=== PATIENT | female | born 1955 | race Two or more races ===

== ENCOUNTER → 2018-04-12 | Outpatient (CLI) | payer OTHER | END | disposition home or self-care (01) | LOC: SONOGRAMA 15:39 | DX: R10.2 Pelvic and perineal pain (principal) ==

== ENCOUNTER 2018-04-20 11:28 | Outpatient (CLI) | payer OTHER | END 2018-04-20 17:00 | disposition home or self-care (01) | LOC: TOM 11:28 | DX: J98.4 Other disorders of lung (principal) ==

== ENCOUNTER → 2019-03-27 | Outpatient (CLI) | payer OTHER | END | disposition home or self-care (01) | LOC: SONOGRAMA 10:39 | DX: N83.209 Unspecified ovarian cyst, unspecified side (principal); R10.2 Pelvic and perineal pain ==

== ENCOUNTER → 2019-04-05 | Outpatient (CLI) | payer OTHER | END | disposition home or self-care (01) | LOC: NUCLEAR 08:28 | DX: C80.0 Disseminated malignant neoplasm, unspecified (principal) | CPT/HCPCS: 78815; A9552 ==

== ENCOUNTER 2019-12-05 11:19 | Outpatient (CLI) | payer OTHER | END 2019-12-05 11:40 | disposition home or self-care (01) | LOC: NUCLEAR 11:19 | DX: M79.601 Pain in right arm (principal); I87.2 Venous insufficiency (chronic) (peripheral) ==

== ENCOUNTER 2019-12-05 12:31 | Outpatient (CLI) | payer OTHER | END 2019-12-05 12:33 | disposition home or self-care (01) | LOC: SONOGRAMA 12:31 → MAMO-SONO 13:15 | DX: M79.621 Pain in right upper arm (principal) ==

== ENCOUNTER 2020-04-03 08:34 | Outpatient (CLI) | payer OTHER | END 2020-04-03 08:38 | disposition home or self-care (01) | LOC: NUCLEAR 08:34 | DX: C56.1 Malignant neoplasm of right ovary (principal); Z90.710 Acquired absence of both cervix and uterus | CPT/HCPCS: 78815; A9552 ==

== ENCOUNTER 2020-11-27 11:49 | Outpatient (CLI) | payer OTHER | END 2020-11-27 12:31 | disposition home or self-care (01) | LOC: NUCLEAR 11:49 | PROVIDERS: ATTEND Internal Medicine Hematology & Oncology | DX: C56.1 Malignant neoplasm of right ovary (principal) | CPT/HCPCS: 78815; A9552 ==

== ENCOUNTER 2022-01-28 08:06 | Outpatient (CLI) | payer OTHER | END 2022-01-28 08:07 | disposition home or self-care (01) | LOC: NUCLEAR 08:06 | PROVIDERS: ATTEND Internal Medicine Hematology & Oncology | DX: C56.1 Malignant neoplasm of right ovary (principal) ==